=== PATIENT | male | born 1965 | race Two or more races ===

== ENCOUNTER 2019-01-26 22:19 | Inpatient (IN) | payer MEDICAID ==
[~2019-01-26] VITALS: Ht 172.7 cm; Wt 54.5 kg
[~2019-01-26 22:19] MED LIST: DOXY-299 PO; FURO1TAB31 PO; PANT40TA2 PO; POTA-220 PO; SPIR50TA2 PO
[2019-01-26 23:24] LABS: Basophils # (auto) 0 uL; Basophils % (auto) 0.6 % (0.0-2.0); Eosinophils # (auto) 0.1 uL; Eosinophils % (auto) 3.6 % (0.0-7.0); Hematocrit 29.8 % (41.0-53.0); Hemoglobin 10.1 g/dL (13.5-17.5); Lymphocytes # (auto) 0.6 uL; Lymphocytes % (auto) 15.7 % (10.0-50.0); Mean Corpuscular Hemoglobin 32.5 pg (28.0-32.0); Mean Corpuscular Hgb Conc. 33.8 g/dL (32.0-36.0); Mean Corpuscular Volume 96.3 fL (80.0-100.0); Monocytes # (auto) 0.4 uL; Monocytes % (auto) 12.2 % (0.0-12.0); Neutrophils # (auto) 2.4 uL; Neutrophils % (auto) 67.9 % (37.0-80.0); Nucleated Red Blood Cells % 0.2 %; Platelet Count (auto) 82 10^3/uL (140-450); Red Blood Cells 3.09 10^6/uL (4.5-5.90); Red Cell Distribution Width 17.8 % (11.8-14.3); White Blood Cell 3.5 10^3/uL (4.4-10.8)
[2019-01-26 23:38] LABS: INR 1.24 (0.9-1.15)
[2019-01-26 23:46] LABS: Alanine Aminotransferase 20 U/L (16-61); Albumin 1.4 g/dL (3.4-5.0); Anion Gap 12 (5-15); Aspartate Aminotransferase 42 U/L (15-37); BUN/Creatinine Ratio 14.3; Blood Urea Nitrogen 11 mg/dL (7-18); Calcium 7.3 mg/dL (8.5-10.1); Carbon Dioxide 19 mmol/L (21-32); Chloride 113 mmol/L (98-107); GFR African American 136 mL/min; GFR Non-African American 112 mL/min; Glucose 157 mg/dL (74-106); Potassium 3.5 mmol/L (3.5-5.1); Sodium 144 mmol/L (136-145)
[2019-01-26 23:51] LABS: Alkaline Phosphatase 159 U/L (45-117); Bilirubin, Total 1.4 mg/dL (0.2-1.0); Total Protein 7.6 g/dL (6.4-8.2)
[2019-01-26 23:55] LABS: Lactic Acid w/Reflex 2.1 mmol/L (0.4-2.0)
[2019-01-27] MEDS ORDERED: FUROSEMIDE 20 MG/2 ML VIAL IV ONE (03:30)
[2019-01-27] MEDS ORDERED: ONDANSETRON HCL 4 MG/2 ML VIAL IV ONE (04:15)
[2019-01-27] MEDS ORDERED: MORPHINE SULFATE 4 MG/ML SYR/VIAL IV ONE (04:15)
[2019-01-27] MEDS ORDERED: TEMAZEPAM 15 MG CAP PO PRN (07:00)
[2019-01-27] MEDS ORDERED: ACETAMINOPHEN 500 MG TAB PO PRN (07:00)
[2019-01-27 07:18] VITALS: BP 102/63
[2019-01-27] MEDS: ALBUTEROL SULF 2.5 MG/0.5ML(0.5%) NEB SOLN NEB SCH ×4 (09:39→23:02)
[2019-01-27] MEDS: IPRATROPIUM BROM 0.5 MG/2.5ML INH SOL NEB SCH ×4 (09:39→23:02)
[2019-01-27] MEDS ORDERED: POTASSIUM CHL 20 Meq TABLET PO SCH (10:00)
[2019-01-27] MEDS ORDERED: SPIRONOLACTONE 25 MG TAB PO SCH (10:00)
[2019-01-27] MEDS ORDERED: PANTOPRAZOLE 40 MG TAB PO SCH (10:00)
[2019-01-27] MEDS ORDERED: FUROSEMIDE 40 MG TAB PO SCH (10:00)
[2019-01-27] MEDS: MORPHINE SULFATE 4 MG/ML SYR/VIAL IV PRN ×2 (13:03→20:00)
[2019-01-27] MEDS: ONDANSETRON HCL 4 MG/2 ML VIAL IV PRN ×2 (13:04→20:00)
[2019-01-27] MEDS ORDERED: VANCOMYCIN PER PHARMACY 0 MG IV SCH (14:00)
[2019-01-27] MEDS ORDERED: cefTRIAXone 1GM/50ML D5W 50 ML IV ONE (14:00)
[2019-01-27] MEDS: VANCOMYCIN 1GM/250ML 250 ML IV SCH (16:00)
[2019-01-27 17:34] LABS: Urine Bacteria FEW /hpf (None Seen); Urine Blood 2+ /uL (Negative); Urine Mucus FEW (None Seen); Urine Specific Gravity 1.012 (1.001-1.035); Urine WBC 26 /hpf (0 - 3)
[2019-01-27 20:15] VITALS: BP 109/66
--- NOTE | 2019-01-27 20:15 | NUR ---
RECEIVED PATIENT FROM ED VIA STRETCHER, AWAKE, ALERT, ORIENTED X4, SPEAKS CLEARLY. NO S/S OF RESPIRATORY DISTRESS, DENIES SOB AND CHEST PAIN. WITH IV ON THE LEFT FOREARM GAUGE 18. WITH REDNESS AND SWELLING OF THE RIGHT FOOT, NO OPEN WOUND. ORIENTED ON PLAN OF CARE. BED IS LOCKED AND IN LOWEST LEVEL, SIDE RAILS UP X2, BED ALARM ON, CALL LIGHT WITHIN REACH. WILL CONTINUE TO MONITOR Addendum: 01/28/19 at 0709 by MAHNAZ MARIE RN CORRECTION; SWELLING AND REDNESS OF THE RIGHT FOOT
[2019-01-27 21:48] VITALS: BP 109/66
--- NOTE | 2019-01-27 22:50 | NUR ---
PHOTO TAKEN OF THE LEFT FOOT. REDNESS, SWELLING WITH SCABS NOTED FROM PREVIOUS WOUNDS. NO OPEN WOUND Addendum: 01/28/19 at 0710 by MAHNAZ MARIE RN CORRECTION; SWELLING, REDNESS AND SCABS ON THE RIGHT FOOT
--- NOTE | 2019-01-27 23:11 | NUR ---
MRSA NASAL SWAB SAMPLE SENT TO LAB
[2019-01-28] MEDS: MORPHINE SULFATE 4 MG/ML SYR/VIAL IV PRN ×2 (00:01→04:13)
[2019-01-28] MEDS: ONDANSETRON HCL 4 MG/2 ML VIAL IV PRN (00:01)
[2019-01-28] MEDS: IPRATROPIUM BROM 0.5 MG/2.5ML INH SOL NEB SCH ×3 (02:24→10:14)
[2019-01-28] MEDS: ALBUTEROL SULF 2.5 MG/0.5ML(0.5%) NEB SOLN NEB SCH ×3 (02:24→10:14)
[2019-01-28 04:55] VITALS: BP 113/64
[2019-01-28 05:42] LABS: Basophils # (auto) 0 uL; Eosinophils # (auto) 0.2 uL; Hemoglobin 9.9 g/dL (13.5-17.5); Lymphocytes # (auto) 0.5 uL; Monocytes # (auto) 0.4 uL; Neutrophils # (auto) 1.4 uL
[2019-01-28 05:44] LABS: Eosinophils % (auto) 7.7 % (0.0-7.0); Hematocrit 28.8 % (41.0-53.0); Lymphocytes % (auto) 18.8 % (10.0-50.0); Mean Corpuscular Hemoglobin 32.4 pg (28.0-32.0); Mean Corpuscular Hgb Conc. 34.2 g/dL (32.0-36.0); Mean Corpuscular Volume 94.9 fL (80.0-100.0); Monocytes % (auto) 15.6 % (0.0-12.0); Neutrophils % (auto) 56.9 % (37.0-80.0); Nucleated Red Blood Cells % 0.2 %; Platelet Count (auto) 57 10^3/uL (140-450); Red Blood Cells 3.04 10^6/uL (4.5-5.90); Red Cell Distribution Width 17.7 % (11.8-14.3); White Blood Cell 2.4 10^3/uL (4.4-10.8)
[2019-01-28] MEDS: VANCOMYCIN 1GM/250ML 250 ML IV SCH (05:56)
[2019-01-28 06:09] LABS: BUN/Creatinine Ratio 18.3; Calcium 7.5 mg/dL (8.5-10.1); Potassium 4.5 mmol/L (3.5-5.1)
--- NOTE | 2019-01-28 07:20 | NUR ---
Opening Shift Note Assumed care of patient, awake and alert. No S/S of distress/SOB. PT denies any pain at this time. Bed in lowest and locked position with side rails up x2 and call light within reach. Instructed on POC and to call for assist PRN, will continue to monitor for changes Q1hr and PRN.
--- NOTE | 2019-01-28 07:34 | NUR ---
CARE ENDORSED TO AM SHIFT RN
--- NOTE | 2019-01-28 08:50 | NUR ---
IV REMOVED WITH CLEAN TECHNIQUE. IV CATHETER INTACT AND PRESSURE APPLIED. TELEMETRY BOX SENT TO [facility].
--- NOTE | 2019-01-28 08:55 | NUR ---
AMA Note KIM DAVIS states they want to leave the hospital Against Medical Advice (AMA). Patient encouraged to stay for further treatment/stabilization. MD notified of patient's wishes. Patient advised of the risks and benefits of leaving AMA. Patient verbalized understanding. Patient encouraged to return to the ER if symptoms do not improve or worsen.
[2019-01-28] MEDS ORDERED: cefTRIAXone 1GM/50ML D5W 50 ML IV SCH (09:00)
== END 2019-01-28 08:55 | disposition left against medical advice (07) | DRG 720 ==
LOC: EDBD 22:19 → ER 22:25 → TELE 22:26 → TELE-WESTW 01-27 20:10
PROVIDERS: ADMIT Nurse Practitioner Family; ATTEND Internal Medicine
DX: A41.9 Sepsis, unspecified organism (principal); E11.69 Type 2 diabetes mellitus with other specified complication; E44.0 Moderate protein-calorie malnutrition; I50.32 Chronic diastolic (congestive) heart failure; I11.0 Hypertensive heart disease with heart failure; J45.901 Unspecified asthma with (acute) exacerbation; E66.01 Morbid (severe) obesity due to excess calories; R06.03 Acute respiratory distress; K74.60 Unspecified cirrhosis of liver; M86.8X7 Other osteomyelitis, ankle and foot; L03.115 Cellulitis of right lower limb; I25.10 Atherosclerotic heart disease of native coronary artery without angina pectoris; Z53.21 Procedure and treatment not carried out due to patient leaving prior to being seen by health care provider; F17.210 Nicotine dependence, cigarettes, uncomplicated; Z79.899 Other long term (current) drug therapy; Z68.1 Body mass index [BMI] 19.9 or less, adult
CPT/HCPCS: 36415; 71045; 76705; 80048; 80053; 81001; 82140; 83036; 83605; 83880; 84443; 84484; 85025; 85610; 85730; 87040; 87081; 93005; 94640; 94761; 96365; 96367; 96375; G0378; J0696; J2405

== ENCOUNTER 2019-01-30 04:51 | Inpatient (IN) | payer MEDICAID ==
[~2019-01-30] VITALS: Ht 172.7 cm; Wt 120.0 kg
[2019-01-30 05:44] LABS: Basophils # (auto) 0 uL; Eosinophils # (auto) 0.1 uL; Lymphocytes # (auto) 0.5 uL; Mean Corpuscular Hgb Conc. 33.8 g/dL (32.0-36.0); Monocytes # (auto) 0.3 uL; Nucleated Red Blood Cells % 0.1 %; White Blood Cell 2.4 10^3/uL (4.4-10.8)
[2019-01-30 05:47] LABS: Basophils % (auto) 0.9 % (0.0-2.0); Eosinophils % (auto) 4.2 % (0.0-7.0); Hematocrit 28.5 % (41.0-53.0); Hemoglobin 9.6 g/dL (13.5-17.5); Lymphocytes % (auto) 19.3 % (10.0-50.0); Mean Corpuscular Hemoglobin 32.2 pg (28.0-32.0); Mean Corpuscular Volume 95.2 fL (80.0-100.0); Monocytes % (auto) 11.8 % (0.0-12.0); Neutrophils # (auto) 1.5 uL; Neutrophils % (auto) 63.8 % (37.0-80.0); Platelet Count (auto) 53 10^3/uL (140-450); Red Blood Cells 2.99 10^6/uL (4.5-5.90); Red Cell Distribution Width 17.4 % (11.8-14.3)
[2019-01-30 05:58] LABS: INR 1.3 (0.9-1.15); Partial Thromboplastin Time 32.2 sec (23.64-32.05)
[2019-01-30 06:03] LABS: Alanine Aminotransferase 16 U/L (16-61); Albumin 1.3 g/dL (3.4-5.0); Anion Gap 8 (5-15); Aspartate Aminotransferase 36 U/L (15-37); BUN/Creatinine Ratio 18.3; Blood Urea Nitrogen 15 mg/dL (7-18); Calcium 7.2 mg/dL (8.5-10.1); Carbon Dioxide 22 mmol/L (21-32); Chloride 110 mmol/L (98-107); GFR African American 126 mL/min; GFR Non-African American 104 mL/min; Glucose 198 mg/dL (74-106); Sodium 140 mmol/L (136-145)
[2019-01-30 06:08] LABS: Alkaline Phosphatase 145 U/L (45-117); Bilirubin, Total 1.4 mg/dL (0.2-1.0); Total Protein 7.1 g/dL (6.4-8.2)
[2019-01-30] MEDS ORDERED: MIDAZOLAM HCL 1MG/1ML-2 ML VIAL ONE (06:48)
[2019-01-30] MEDS ORDERED: SODIUM CHLORIDE 0.9% 1,000 ML IV ONE (07:36)
[2019-01-30] MEDS ORDERED: ALBUMIN 25% 100 ML IV ONE (07:45)
[2019-01-30] MEDS ORDERED: HYDROmorphone HCL 2 MG/ML VL IV ONE (07:45)
[2019-01-30 08:06] LABS: Urine Bacteria FEW /hpf (None Seen); Urine Blood 2+ /uL (Negative); Urine Budding Yeast OCCASIONAL /hpf (None Seen); Urine Mucus FEW (None Seen); Urine Specific Gravity 1.032 (1.001-1.035); Urine WBC 9 /hpf (0 - 3)
[2019-01-30] MEDS ORDERED: FUROSEMIDE 40 MG/4 ML VIAL IV ONE (11:45)
[2019-01-30] MEDS ORDERED: SPIRONOLACTONE 25 MG TAB PO ONE (11:45)
[2019-01-30] MEDS ORDERED: hydrALAZINE HCL 20 MG/ML VL IV PRN (12:00)
[2019-01-30] MEDS ORDERED: NITROGLYCERIN 0.4 MG SL TAB SL PRN (12:00)
[2019-01-30] MEDS ORDERED: ACETAMINOPHEN 500 MG TAB PO PRN (12:00)
[2019-01-30] MEDS ORDERED: MORPHINE SULF INJ 2 MG/ML SYRINGE 1ML IV PRN (12:00)
[2019-01-30] MEDS ORDERED: DEXTROSE (50%) 50ML SYRG IV PRN (12:15)
[2019-01-30] MEDS: MORPHINE SULF INJ 2 MG/ML SYRINGE 1ML IV PRN ×3 (13:25→23:39)
[2019-01-30] MEDS: PROMETHAZINE HCL 25 MG/ML 1ML IV PRN (13:25)
[2019-01-30 14:16] LABS: Alcohol, Urine < 3.0 mg/dL (0-5); Amphetamine Screen, Urine NEGATIVE (NEGATIVE); Barbiturate Scree,Urine NEGATIVE (NEGATIVE); Benzodiazephine Screen, Urine NEGATIVE (NEGATIVE); Cannabinoid Screen, Urine POSITIVE (NEGATIVE); Cocaine Screen, Urine NEGATIVE (NEGATIVE); Opiate Scree,Urine NEGATIVE (NEGATIVE); Phencyclidine Screen, Urine NEGATIVE (NEGATIVE)
--- NOTE | 2019-01-30 14:55 | NUR ---
REPORT RECEIVED RECIEVED REPORT FROM KRISHNA IN ER, PATIENT IS TO ARRIVE ONCE ECHO IS COMPLETED AND ER HAS TELE BOX
--- NOTE | 2019-01-30 15:52 | NUR ---
pt on unit PATIENT ARRIVED ON UNIT FROM ER, PATIENT IS A&OX4 WITH C/O PAIN, MEDICATED PER MED RECORD. PATIENTS BED IS IN LOW POSITION, BRAKES APPLIED WITH SIDE RAILS UP X2 AND CALL LIGHT WITHIN REACH. PATIENT EDUCATED ON POC AND CALL LIGHT USE PRN, PATIENT VERBALIZED UNDERSTANDING. S/S OF DISTRESS, CONTINUING TO MONITOR PATIENT Q1HR AND PRN
[2019-01-30] MEDS: HYDROcodone-ACET 5/325MG TAB PO PRN ×2 (16:00→22:12)
[2019-01-30 16:06] VITALS: BP 112/60
[2019-01-30] MEDS ORDERED: HYDR-4833 PO (16:43)
[2019-01-30] MEDS: ACCU-CHEK COMFORT CURVE STRIP VI SCH ×2 (17:00→22:07)
[2019-01-30] MEDS: InsuLIN REG 1unit/0.01ml Soln (100units/ml) SC SCH ×2 (17:00→22:00)
--- NOTE | 2019-01-30 19:30 | NUR ---
Opening Shift Note Assumed care of patient, awake and alert. No S/S of distress/SOB. Complained of abdominal pain 12/03. Instructed on POC and to be NPO by 4am. For paracentesis tomorrow, patient verbalized understanding. Instructed to call for assist PRN, call light within reach, will continue to monitor for changes Q1hr and PRN.
[2019-01-30 20:00] VITALS: BP 110/67
[2019-01-30 21:59] VITALS: BP 110/67
[2019-01-30] MEDS: DOCUSATE SOD 100 MG CAP PO SCH (22:00)
[2019-01-30] MEDS: METOPROLOL TARTRATE 25 MG TAB PO SCH (22:07)
[2019-01-30] MEDS: ATORVASTATIN 20 MG TAB PO SCH (22:07)
[2019-01-31] MEDS: MORPHINE SULF INJ 2 MG/ML SYRINGE 1ML IV PRN ×5 (04:34→22:35)
[2019-01-31 05:00] VITALS: BP 97/55
[2019-01-31] MEDS: InsuLIN REG 1unit/0.01ml Soln (100units/ml) SC SCH ×4 (06:06→21:50)
[2019-01-31] MEDS: ACCU-CHEK COMFORT CURVE STRIP VI SCH ×4 (06:06→21:47)
[2019-01-31 06:41] LABS: INR 1.32 (0.9-1.15); Partial Thromboplastin Time 33.2 sec (23.64-32.05)
[2019-01-31 06:48] LABS: Eosinophils # (auto) 0.2 uL; Lymphocytes # (auto) 0.5 uL; Monocytes # (auto) 0.4 uL; Neutrophils # (auto) 1.2 uL
[2019-01-31 06:50] LABS: Basophils # (auto) 0.1 uL; Basophils % (auto) 2.6 % (0.0-2.0); Eosinophils % (auto) 7.7 % (0.0-7.0); Hematocrit 29.2 % (41.0-53.0); Lymphocytes % (auto) 20.2 % (10.0-50.0); Mean Corpuscular Hemoglobin 32.9 pg (28.0-32.0); Mean Corpuscular Hgb Conc. 34.1 g/dL (32.0-36.0); Mean Corpuscular Volume 96.5 fL (80.0-100.0); Monocytes % (auto) 17.4 % (0.0-12.0); Neutrophils % (auto) 52.1 % (37.0-80.0); Platelet Count (auto) 56 10^3/uL (140-450); Red Blood Cells 3.02 10^6/uL (4.5-5.90); Red Cell Distribution Width 17.6 % (11.8-14.3); White Blood Cell 2.2 10^3/uL (4.4-10.8)
[2019-01-31 06:56] LABS: BUN/Creatinine Ratio 19.5; Calcium 7.1 mg/dL (8.5-10.1); Potassium 4.3 mmol/L (3.5-5.1)
--- NOTE | 2019-01-31 07:50 | NUR ---
Opening Shift Note Assumed care of patient, awake but drowsy and alert. No S/S of distress/SOB, however patient complained of pain to lower back and or pain. Instructed on POC and to call for assist PRN, will continue to monitor for changes Q1hr and PRN.
[2019-01-31 09:00] VITALS: BP 105/58
[2019-01-31] MEDS: ASPirin-EC 81 mg tab PO SCH (09:55)
[2019-01-31] MEDS: FAMOTIDINE 20 MG TAB PO SCH (09:55)
[2019-01-31] MEDS: DOCUSATE SOD 100 MG CAP PO SCH ×2 (09:55→21:50)
[2019-01-31] MEDS: METOPROLOL TARTRATE 25 MG TAB PO SCH ×2 (09:57→21:42)
[2019-01-31] MEDS: SPIRONOLACTONE 25 MG TAB PO SCH (10:00)
[2019-01-31] MEDS ORDERED: IOHEXOL 350 MG/ML 100ML IJ ONE (10:36)
[2019-01-31 13:00] VITALS: BP 108/56
[2019-01-31 17:00] VITALS: BP 120/58
--- NOTE | 2019-01-31 19:35 | NUR ---
Opening Shift Note Assumed care of patient, awake and alert. No S/S of distress/SOB. Instructed on POC and to call for assist PRN, patient verbalized understanding, call light within reach, will continue to monitor for changes Q1hr and PRN.
[2019-01-31] MEDS: ATORVASTATIN 20 MG TAB PO SCH (21:42)
[2019-01-31 22:00] VITALS: BP 103/60
[2019-02-01] MEDS: HYDROcodone-ACET 5/325MG TAB PO PRN ×2 (01:00→09:16)
[2019-02-01] MEDS: MORPHINE SULF INJ 2 MG/ML SYRINGE 1ML IV PRN ×6 (02:33→22:42)
[2019-02-01 05:00] VITALS: BP 91/60
[2019-02-01] MEDS: ACCU-CHEK COMFORT CURVE STRIP VI SCH ×4 (05:57→22:44)
[2019-02-01] MEDS: InsuLIN REG 1unit/0.01ml Soln (100units/ml) SC SCH ×4 (05:58→22:55)
--- NOTE | 2019-02-01 07:35 | NUR ---
Opening Shift Note Assumed care of patient, asleep but easily aroused. No S/S of distress/SOB or pain. Will follow up with instructions on POC and to call for assist PRN, will continue to monitor for changes Q1hr and PRN.
--- NOTE | 2019-02-01 07:50 | NUR ---
Pain Medications Patient requested pain injection. He was informed that he received pain medication (morphine) at 0642am.He said no he didn't. It must have been at 5:00 or something and that it was not documented until 0642. Explained that it was not taken from the cassette until 0641, therefore it could not have been documented incorrectly. He stated that the nurse told him she would bring his injection at 0630 and she went away and did not return. He then started to fuss, stating that we don't know what we are doing and he is just tired of this place.
--- NOTE | 2019-02-01 08:45 | NUR ---
Patient requesting a new RN.
[2019-02-01 09:00] VITALS: BP 96/52
--- NOTE | 2019-02-01 09:00 | NUR ---
Care endorsed to Gama HENRY.
[2019-02-01] MEDS: SPIRONOLACTONE 25 MG TAB PO SCH (11:19)
[2019-02-01] MEDS: LACTULOSE 20Gm/30ML SOLN PO SCH ×2 (11:19→22:44)
[2019-02-01] MEDS: ASPirin-EC 81 mg tab PO SCH (11:20)
[2019-02-01] MEDS: DOCUSATE SOD 100 MG CAP PO SCH ×2 (11:20→22:43)
[2019-02-01] MEDS: FUROSEMIDE 40 MG TAB PO SCH (11:20)
[2019-02-01] MEDS: FAMOTIDINE 20 MG TAB PO SCH (11:21)
[2019-02-01] MEDS: METOPROLOL TARTRATE 25 MG TAB PO SCH ×2 (11:21→22:39)
--- NOTE | 2019-02-01 12:30 | NUR ---
Rounds Patient awake and alert. No S/S of distress/SOB or pain. Will continue to monitor changes q1hr and PRN.
[2019-02-01 13:00] VITALS: BP 92/53
[2019-02-01 17:00] VITALS: BP 108/59
--- NOTE | 2019-02-01 19:35 | NUR ---
Opening Shift Note Assumed care of patient, eyes closed, respirations even and unlabored, appears asleep. Patient awakens to name and touch. No S/S of distress/SOB. Patient reporting pain, but aware PRN morphine not due at this time. Patient refusing alternate ordered pain medication at this time. Will medicate for pain as ordered and continue to monitor. Band-aide to left abdomen noted to be clean, dry, and intact. to Instructed on POC and to call for assist PRN, will continue to monitor for changes Q1hr and PRN.
[2019-02-01 22:00] VITALS: BP 103/57
[2019-02-01] MEDS: ATORVASTATIN 20 MG TAB PO SCH (22:43)
[2019-02-02] MEDS: ONDANSETRON HCL 4 MG/2 ML VIAL IV PRN (00:28)
[2019-02-02] MEDS: MORPHINE SULF INJ 2 MG/ML SYRINGE 1ML IV PRN ×5 (03:03→20:14)
[2019-02-02 05:00] VITALS: BP 103/60
[2019-02-02] MEDS: ACCU-CHEK COMFORT CURVE STRIP VI SCH ×4 (07:04→21:36)
[2019-02-02] MEDS: InsuLIN REG 1unit/0.01ml Soln (100units/ml) SC SCH ×4 (07:04→22:00)
--- NOTE | 2019-02-02 07:04 | NUR ---
Closing Note Patient lying in bed, awake and alert. No s/s of distress. Medicated for pain as ordered, see emar. Care endorsed to dayshift RN.
--- NOTE | 2019-02-02 07:22 | NUR ---
Opening Shift Note Assumed care of patient, awake and alert. No S/S of distress/SOB. Pt denies any pain at this time. Bed in lowest and locked position with side rails up x2 and call light in reach. Instructed on POC and to call for assist PRN, will continue to monitor for changes Q1hr and PRN.
[2019-02-02 08:00] VITALS: BP 102/57
[2019-02-02 09:29] LABS: Anion Gap 7 (5-15); Carbon Dioxide 22 mmol/L (21-32); Chloride 110 mmol/L (98-107); Glucose 157 mg/dL (74-106); Potassium 3.9 mmol/L (3.5-5.1); Sodium 139 mmol/L (136-145)
[2019-02-02 09:30] LABS: Blood Urea Nitrogen 18 mg/dL (7-18); GFR African American 126 mL/min; GFR Non-African American 104 mL/min
[2019-02-02] MEDS: METOPROLOL TARTRATE 25 MG TAB PO SCH ×2 (10:00→21:35)
[2019-02-02] MEDS: LACTULOSE 20Gm/30ML SOLN PO SCH ×2 (11:12→21:35)
[2019-02-02] MEDS: ASPirin-EC 81 mg tab PO SCH (11:13)
[2019-02-02] MEDS: SPIRONOLACTONE 25 MG TAB PO SCH (11:13)
[2019-02-02] MEDS: DOCUSATE SOD 100 MG CAP PO SCH ×2 (11:13→21:36)
[2019-02-02] MEDS: FAMOTIDINE 20 MG TAB PO SCH (11:13)
[2019-02-02] MEDS: FUROSEMIDE 40 MG TAB PO SCH (11:14)
[2019-02-02 13:00] VITALS: BP 102/55
[2019-02-02] MEDS: HYDROcodone-ACET 5/325MG TAB PO PRN (14:04)
--- NOTE | 2019-02-02 15:25 | NUR ---
DR. ABAD AT BEDSIDE DISCUSSING POC WITH PT.
[2019-02-02 16:41] VITALS: BP 112/53
--- NOTE | 2019-02-02 19:20 | NUR ---
Opening Shift Note Assumed care of patient, awake and alert. No S/S of distress/SOB. Patient reporting pain, but aware PRN morphine not due at this time. Patient again refusing alternate ordered pain medications. Will medicate for pain as ordered and continue to monitor. Bed in lowest locked position, side rails up x2, call light within reach. Instructed on POC and to call for assist PRN, will continue to monitor for changes Q1hr and PRN.
--- NOTE | 2019-02-02 19:25 | NUR ---
Opening Shift Note Assumed care of patient, eyes closed, respirations even and unlabored, appears asleep. No S/S of distress/SOB. Patient reporting pain, but aware PRN morphine not due at this time. Will medicate for pain as ordered and continue to monitor. Bed in lowest locked position, side rails up x2, call light within reach. Instructed on POC and to call for assist PRN, will continue to monitor for changes Q1hr and PRN. Addendum: 02/03/19 at 2318 by YOLANDA BOWLING RN RN CORRECTION: Date of note 02/03/19.
--- NOTE | 2019-02-02 20:15 | NUR ---
MRSA Swab Nasal MRSA swab collected and sent. Patient tolerated well. Will continue to monitor.
[2019-02-02] MEDS: ATORVASTATIN 20 MG TAB PO SCH (21:35)
[2019-02-02 22:00] VITALS: BP 104/57
[2019-02-03] MEDS: MORPHINE SULF INJ 2 MG/ML SYRINGE 1ML IV PRN ×4 (00:30→20:53)
[2019-02-03 05:00] VITALS: BP 91/46
[2019-02-03] MEDS: ACCU-CHEK COMFORT CURVE STRIP VI SCH ×4 (06:39→20:54)
[2019-02-03] MEDS: InsuLIN REG 1unit/0.01ml Soln (100units/ml) SC SCH ×4 (06:39→21:07)
--- NOTE | 2019-02-03 07:40 | NUR ---
Closing Note Patient lying in bed, awake and alert. No s/s of distress. Care endorsed to dayshift RN.
[2019-02-03 08:28] VITALS: BP 92/45
[2019-02-03] MEDS: FAMOTIDINE 20 MG TAB PO SCH (09:59)
[2019-02-03] MEDS: LACTULOSE 20Gm/30ML SOLN PO SCH ×2 (09:59→20:53)
[2019-02-03] MEDS: ASPirin-EC 81 mg tab PO SCH (09:59)
[2019-02-03] MEDS: HYDROcodone-ACET 5/325MG TAB PO PRN (09:59)
[2019-02-03] MEDS: DOCUSATE SOD 100 MG CAP PO SCH ×2 (09:59→20:53)
[2019-02-03] MEDS: METOPROLOL TARTRATE 25 MG TAB PO SCH ×2 (10:00→20:54)
[2019-02-03] MEDS: SPIRONOLACTONE 25 MG TAB PO SCH (10:00)
[2019-02-03] MEDS: FUROSEMIDE 40 MG TAB PO SCH (10:00)
[2019-02-03 13:00] VITALS: BP 90/52
[2019-02-03 13:37] LABS: Basophils # (auto) 0 uL; Eosinophils # (auto) 0.1 uL; Monocytes # (auto) 0.4 uL; Neutrophils # (auto) 1.3 uL; Nucleated Red Blood Cells % 0.2 %; Platelet Count (auto) 61 10^3/uL (140-450); Red Blood Cells 3.38 10^6/uL (4.5-5.90); White Blood Cell 2.3 10^3/uL (4.4-10.8)
[2019-02-03 14:02] LABS: Albumin 1.4 g/dL (3.4-5.0); Basophils % (auto) 0.8 % (0.0-2.0); Calcium 7.2 mg/dL (8.5-10.1); Eosinophils % (auto) 4.8 % (0.0-7.0); Hemoglobin 10.7 g/dL (13.5-17.5); Lymphocytes # (auto) 0.5 uL; Mean Corpuscular Hemoglobin 31.8 pg (28.0-32.0); Mean Corpuscular Hgb Conc. 33.5 g/dL (32.0-36.0); Mean Corpuscular Volume 94.9 fL (80.0-100.0); Monocytes % (auto) 17.2 % (0.0-12.0); Neutrophils % (auto) 57.2 % (37.0-80.0); Red Cell Distribution Width 17.8 % (11.8-14.3)
[2019-02-03 14:07] LABS: BUN/Creatinine Ratio 21.5; Bilirubin, Total 1.4 mg/dL (0.2-1.0); Total Protein 6.9 g/dL (6.4-8.2)
[2019-02-03] MEDS ORDERED: VANCOMYCIN PER PHARMACY 0 MG IV SCH (14:15)
[2019-02-03] MEDS: VANCOMYCIN 1,250 MG in D5W 5% 250 ML IV SCH ×2 (15:45→22:30)
[2019-02-03 17:25] VITALS: BP 96/46
[2019-02-03] MEDS: ATORVASTATIN 20 MG TAB PO SCH (20:54)
[2019-02-03 22:00] VITALS: BP 118/61
[2019-02-03] MEDS: ONDANSETRON HCL 4 MG/2 ML VIAL IV PRN (22:39)
[2019-02-04] MEDS: PROMETHAZINE HCL 25 MG/ML 1ML IV PRN (01:03)
[2019-02-04] MEDS: MORPHINE SULF INJ 2 MG/ML SYRINGE 1ML IV PRN ×3 (01:03→20:47)
[2019-02-04 05:00] VITALS: BP 99/57
[2019-02-04 06:05] LABS: Red Cell Distribution Width 17.3 % (11.8-14.3); White Blood Cell 2.1 10^3/uL (4.4-10.8)
[2019-02-04 06:08] LABS: Hematocrit 29.1 % (41.0-53.0); Mean Corpuscular Hemoglobin 32.3 pg (28.0-32.0); Mean Corpuscular Hgb Conc. 34.5 g/dL (32.0-36.0); Mean Corpuscular Volume 93.8 fL (80.0-100.0); Red Blood Cells 3.11 10^6/uL (4.5-5.90)
[2019-02-04 06:15] LABS: Basophils % (manual) 0 (0.0-2.0); Blast Cells 0; Metamyelocytes % 0; Myelocytes % 0; Promyelocytes % 0; Reactive Lymphocytes 0
[2019-02-04] MEDS: ACCU-CHEK COMFORT CURVE STRIP VI SCH ×4 (06:41→22:04)
[2019-02-04] MEDS: VANCOMYCIN 1,250 MG in D5W 5% 250 ML IV SCH ×3 (06:41→22:29)
[2019-02-04] MEDS: InsuLIN REG 1unit/0.01ml Soln (100units/ml) SC SCH ×4 (06:55→22:13)
--- NOTE | 2019-02-04 07:07 | NUR ---
Closing Note Patient lying in bed, eyes closed, respirations even and unlabored, appears asleep. Patient awakens to name and touch. Asked if he is in pain, states he is "ok right now". No s/s of distress. Care endorsed to dayshift RN.
--- NOTE | 2019-02-04 07:20 | NUR ---
Opening Shift Note Assumed care of patient, awake and alert. No S/S of distress/SOB or pain. Instructed on POC and to call For assist PRN, will continue to monitor for changes Q1hr and PRN. Bed locked in lowest position with two side rails up and call light in reach.
[2019-02-04 08:00] VITALS: BP 92/52
[2019-02-04 08:41] LABS: Platelet Count (auto) 52 10^3/uL (140-450)
[2019-02-04 09:00] VITALS: BP 92/55
--- NOTE | 2019-02-04 09:00 | NUR ---
RECEIVED A CALL FROM [facility] ERICKA WANTS TO LET KNOW THAT PLATELETS ARE LOW AT 52 AND IF HE WOULD LIKE TO CONTINUE ASA [address] BARTH WHO I NOTIFIED, UNLESS PATIENT IS SHOWING SIGNS OF BLEEDING SUCH BLOODY NOSE ETC. CONTINUE, IF BLEEDING IS PRESENT STOP ASA.
[2019-02-04 09:21] LABS: Band Neutrophils % (manual) 1; Lymphocytes % (manual) 21 (10.0-50.0)
[2019-02-04 09:22] LABS: Monocytes % (manual) 18 (0-12)
[2019-02-04 09:23] LABS: Eosinophils % (manual) 4 (0-7)
[2019-02-04] MEDS: DOCUSATE SOD 100 MG CAP PO SCH ×2 (09:33→22:00)
[2019-02-04] MEDS: FAMOTIDINE 20 MG TAB PO SCH (09:33)
[2019-02-04] MEDS: LACTULOSE 20Gm/30ML SOLN PO SCH ×2 (09:33→10:00)
[2019-02-04] MEDS: SPIRONOLACTONE 25 MG TAB PO SCH (09:33)
[2019-02-04] MEDS: ASPirin-EC 81 mg tab PO SCH (09:34)
[2019-02-04] MEDS: METOPROLOL TARTRATE 25 MG TAB PO SCH ×2 (09:34→22:00)
[2019-02-04] MEDS: FUROSEMIDE 40 MG TAB PO SCH (09:34)
[2019-02-04 10:45] LABS: Hepatitis B Surface Antibody Negative
[2019-02-04 11:18] LABS: Hepatitis A Total Antibody Positive
--- NOTE | 2019-02-04 11:46 | NUR ---
assessment Patient is a 53 year old male who is alert and oriented. Prior to admission patient lived home with his son Eddi and functioned with assistance. when he is not feeling well. Patient informed me he has a wheelchair for home use, but it is old and broke. Patient informed me he still has not seen a PCP. Patient informed me he will return home with his son on discharge. Patient will need a new wheelchair on discharge. Patient verbalized understanding and agreed to discharge plan home with his son. Addendum: 02/06/19 at 1848 by Estrella GARCIA Amended: Links added.
[2019-02-04] MEDS: Glucerna Carbsteady SHAKE Vanilla 8oz PO SCH ×2 (12:02→18:00)
--- NOTE | 2019-02-04 12:08 | NUR ---
Nutrition Assessment Notes please see attached link for complete assessment Est. Needs ABW (96 kg): [id number] kcal (17-20 kcal/kgBW), 57-76 gms pro (0.6-0.8 gms/kgBW r/t elev ammonia, wounds severe hypoalb). Will continue to monitor pertinent labs and reassess nutrient need prn Addendum: 02/04/19 at [address] Amended: Links added.
[2019-02-04 13:00] VITALS: BP 112/58
[2019-02-04 13:59] LABS: Hepatitis B Core Total AB Negative
[2019-02-04 14:00] LABS: Hepatitis B Surface Antigen Negative (Negative)
[2019-02-04 14:03] LABS: Hepatitis C Antibody Positive (Negative)
--- NOTE | 2019-02-04 14:16 | NUR ---
DR COURTNEY MO RECOMMENDED FOR PATIENT TO STAY OFF LEFT FOOT AND WHEEL CHAIR ALONG WITH CAM BOOT.
--- NOTE | 2019-02-04 14:17 | NUR ---
RECEIVED CALL FROM LAB PER YARELI PATIENT IS POSITIVE FOR HEPATITIS C. REPORTED TP DR BARTH AND CHARGE NURSE NOTIFIED.
[2019-02-04 17:00] VITALS: BP 103/54
--- NOTE | 2019-02-04 17:00 | NUR ---
Received report from heathwachaitanya RN. Patient resting in bed and in no distress. Will continue care.
--- NOTE | 2019-02-04 19:00 | NUR ---
Opening Shift Note Assumed care of patient, patient asleep. No S/S of distress/SOB or pain. Will continue to monitor for changes Q1hr and PRN.
[2019-02-04 22:00] VITALS: BP 114/54
[2019-02-04] MEDS: ATORVASTATIN 20 MG TAB PO SCH (22:12)
[2019-02-05] MEDS: MORPHINE SULF INJ 2 MG/ML SYRINGE 1ML IV PRN ×4 (01:11→22:25)
[2019-02-05 04:25] LABS: Hemoglobin 10.3 g/dL (13.5-17.5); White Blood Cell 2.2 10^3/uL (4.4-10.8)
[2019-02-05 04:27] LABS: Mean Corpuscular Hemoglobin 32.2 pg (28.0-32.0); Mean Corpuscular Hgb Conc. 34.4 g/dL (32.0-36.0); Mean Corpuscular Volume 93.6 fL (80.0-100.0); Platelet Count (auto) 56 10^3/uL (140-450); Red Cell Distribution Width 17.5 % (11.8-14.3)
[2019-02-05 04:36] LABS: Basophils % (manual) 0 (0.0-2.0); Blast Cells 0; Metamyelocytes % 0; Myelocytes % 0; Promyelocytes % 0; Reactive Lymphocytes 0
[2019-02-05 05:04] LABS: BUN/Creatinine Ratio 23.9; Calcium 7.1 mg/dL (8.5-10.1); Potassium 3.8 mmol/L (3.5-5.1)
--- NOTE | 2019-02-05 05:40 | NUR ---
BP IN THE AM WAS AT 94/49. PATIENT IS ASYMPTOMATIC. RESUMED LR AT 150.
[2019-02-05 05:41] VITALS: BP 113/60
--- NOTE | 2019-02-05 06:00 | NUR ---
PATIENT REPORTS NO FURTHER VAGINAL BLEEDING AND NO C/O PAIN.
[2019-02-05 06:15] LABS: Band Neutrophils % (manual) 4; Eosinophils % (manual) 3 (0-7); Lymphocytes % (manual) 17 (10.0-50.0); Monocytes % (manual) 12 (0-12)
[2019-02-05] MEDS: ACCU-CHEK COMFORT CURVE STRIP VI SCH ×4 (06:22→22:24)
[2019-02-05] MEDS: InsuLIN REG 1unit/0.01ml Soln (100units/ml) SC SCH ×4 (06:23→22:25)
[2019-02-05] MEDS: VANCOMYCIN 1,250 MG in D5W 5% 250 ML IV SCH ×3 (06:42→23:00)
--- NOTE | 2019-02-05 06:53 | NUR ---
BP RECHECK WAS 95/55.
[2019-02-05 08:00] VITALS: BP 103/59
[2019-02-05 10:00] VITALS: BP 103/59
--- NOTE | 2019-02-05 10:05 | NUR ---
DR. PATEL AT BEDSIDE. POC DISCUSSED WITH PT. PT VERBALIZED AGREEING WITH POC.
[2019-02-05] MEDS: FAMOTIDINE 20 MG TAB PO SCH (10:11)
[2019-02-05] MEDS: ASPirin-EC 81 mg tab PO SCH (10:11)
[2019-02-05] MEDS: FUROSEMIDE 40 MG TAB PO SCH (10:11)
[2019-02-05] MEDS: DOCUSATE SOD 100 MG CAP PO SCH ×2 (10:11→22:24)
[2019-02-05] MEDS: METOPROLOL TARTRATE 25 MG TAB PO SCH ×2 (10:12→22:24)
[2019-02-05] MEDS: SPIRONOLACTONE 25 MG TAB PO SCH (10:12)
[2019-02-05] MEDS: LACTULOSE 20Gm/30ML SOLN PO SCH ×4 (10:12→23:39)
[2019-02-05] MEDS: Glucerna Carbsteady SHAKE Vanilla 8oz PO SCH ×3 (10:13→17:58)
[2019-02-05 13:17] VITALS: BP 110/46
[2019-02-05 16:39] VITALS: BP 117/77
--- NOTE | 2019-02-05 17:01 | NUR ---
Per consult for wheel chair and cam boot. Contacted and faxed medical records to [facility], [facility] and [facility]. [facility] and [facility] are not contract with medical. Contacted [facility] Ph: ) Fax: ). Per Sherly from [facility] referral was received and they will review it. I will followed up tomorrow morning. Addendum: 02/06/19 at 1814 by DANE HERNANDEZ Followed up with Sherly from [facility] and faxed prescription to Sherly. Per Sherly faxed was recieved and she will give it to Chandan from [facility] and will follow up tomorrow for approval.
--- NOTE | 2019-02-05 19:30 | NUR ---
Opening Shift Note Assumed care of patient, awake and alert. No S/S of distress/SOB or pain. Instructed on POC and to call for assist PRN. Bed in lowest locked position, call light within reach, side rails up x2, fall precautions in place. Will continue to monitor for changes Q1hr and PRN.
--- NOTE | 2019-02-05 19:48 | NUR ---
CARE ENDORSED TO NOC SHIFT RN.
[2019-02-05 22:00] VITALS: BP 115/68
[2019-02-05] MEDS: ATORVASTATIN 20 MG TAB PO SCH (22:24)
--- NOTE | 2019-02-05 23:00 | NUR ---
Bonifacio Valdovinos held at this time due to vanco trough elevated at 25.1. Will continue care
[2019-02-06] MEDS: MORPHINE SULF INJ 2 MG/ML SYRINGE 1ML IV PRN ×5 (02:15→20:15)
[2019-02-06 05:00] VITALS: BP 101/58
[2019-02-06] MEDS: ACCU-CHEK COMFORT CURVE STRIP VI SCH ×4 (06:28→21:46)
[2019-02-06] MEDS: VANCOMYCIN 1,250 MG in D5W 5% 250 ML IV SCH (06:28)
[2019-02-06] MEDS: LACTULOSE 20Gm/30ML SOLN PO SCH ×4 (06:28→23:36)
[2019-02-06] MEDS: InsuLIN REG 1unit/0.01ml Soln (100units/ml) SC SCH ×4 (06:29→21:46)
[2019-02-06 07:36] LABS: Mean Corpuscular Hemoglobin 31.8 pg (28.0-32.0); Red Cell Distribution Width 17.7 % (11.8-14.3)
[2019-02-06 07:37] LABS: Hematocrit 33.6 % (41.0-53.0); Hemoglobin 11.3 g/dL (13.5-17.5); Mean Corpuscular Hgb Conc. 33.5 g/dL (32.0-36.0); Platelet Count (auto) 62 10^3/uL (140-450); Red Blood Cells 3.54 10^6/uL (4.5-5.90)
--- NOTE | 2019-02-06 07:40 | NUR ---
OPENING NOTE Assumed care of patient from NOC RN, Alejandra. Patient awake and alert with no S/S of distress/SOB. C/O of generalized back pain 7/10 on adult pain scale, will administer prn pain medication as ordered. Instructed on POC and to call for assist PRN, verbalized understanding. Bed in lowest, locked position with side rails up x2. Fall precautions in place and call light within reach. Will continue to monitor for changes Q1hr and PRN.
[2019-02-06 07:45] LABS: Band Neutrophils % (manual) 0; Basophils % (manual) 0 (0.0-2.0); Blast Cells 0; Metamyelocytes % 0; Myelocytes % 0; Promyelocytes % 0; Reactive Lymphocytes 0
[2019-02-06 07:48] LABS: BUN/Creatinine Ratio 22.1; Calcium 7.5 mg/dL (8.5-10.1); Potassium 3.6 mmol/L (3.5-5.1)
[2019-02-06] MEDS: Glucerna Carbsteady SHAKE Vanilla 8oz PO SCH ×3 (08:00→17:40)
[2019-02-06 08:30] LABS: Eosinophils % (manual) 2 (0-7); Lymphocytes % (manual) 17 (10.0-50.0); Monocytes % (manual) 10 (0-12)
[2019-02-06 09:00] VITALS: BP 106/55
[2019-02-06] MEDS: ASPirin-EC 81 mg tab PO SCH (09:35)
[2019-02-06] MEDS: SPIRONOLACTONE 25 MG TAB PO SCH (09:35)
[2019-02-06] MEDS: DOCUSATE SOD 100 MG CAP PO SCH ×2 (09:35→21:46)
[2019-02-06] MEDS: FAMOTIDINE 20 MG TAB PO SCH (09:35)
[2019-02-06] MEDS: METOPROLOL TARTRATE 25 MG TAB PO SCH ×2 (09:36→21:47)
[2019-02-06] MEDS: FUROSEMIDE 40 MG TAB PO SCH (09:36)
[2019-02-06 13:00] VITALS: BP 109/60
[2019-02-06] MEDS: VANCOMYCIN 1GM/250ML 250 ML IV SCH ×2 (15:51→23:36)
[2019-02-06 17:00] VITALS: BP 115/53
[2019-02-06] MEDS: NutriHep RTU 240 mL Unflavored PO SCH (17:40)
--- NOTE | 2019-02-06 19:09 | NUR ---
CLOSING NOTE Endorsed care of patient to NOC Alejandra HENRY.
[2019-02-06] MEDS: ATORVASTATIN 20 MG TAB PO SCH (21:46)
--- NOTE | 2019-02-06 21:50 | NUR ---
Med held Lopressor held due to low diastolic BP 117/57. Will continue to monitor.
[2019-02-06 22:00] VITALS: BP 117/57
--- NOTE | 2019-02-07 01:35 | NUR ---
IV insertion IV access obtained, via clean sterile technique by inserting 22 gauge catheter at left forearm after 6 attempt(s). IV secured properly. No trauma to site. Patient tolerated well. NOTE: Previous IV dc'd.
[2019-02-07] MEDS: MORPHINE SULF INJ 2 MG/ML SYRINGE 1ML IV PRN ×3 (01:38→15:12)
[2019-02-07 04:31] LABS: Basophils # (auto) 0 uL; Basophils % (auto) 0.4 % (0.0-2.0); Eosinophils # (auto) 0.1 uL; Eosinophils % (auto) 3.9 % (0.0-7.0); Hematocrit 31.7 % (41.0-53.0); Hemoglobin 10.9 g/dL (13.5-17.5); Lymphocytes # (auto) 0.6 uL; Lymphocytes % (auto) 17.3 % (10.0-50.0); Mean Corpuscular Hemoglobin 32.1 pg (28.0-32.0); Mean Corpuscular Hgb Conc. 34.5 g/dL (32.0-36.0); Monocytes # (auto) 0.6 uL; Monocytes % (auto) 17.8 % (0.0-12.0); Neutrophils # (auto) 1.9 uL; Neutrophils % (auto) 60.6 % (37.0-80.0); Platelet Count (auto) 56 10^3/uL (140-450); Red Blood Cells 3.41 10^6/uL (4.5-5.90); Red Cell Distribution Width 17.5 % (11.8-14.3); White Blood Cell 3.2 10^3/uL (4.4-10.8)
--- NOTE | 2019-02-07 04:59 | NUR ---
PATIENT REFUSED 4AM VITALS WAS VERY RUDE AND DISRESPECTFUL CURSING AT ME
--- NOTE | 2019-02-07 05:00 | NUR ---
Vital signs Patient refusing AM vital signs and cursing at FORCE DISPATCHER.
[2019-02-07 05:08] LABS: Potassium 3.8 mmol/L (3.5-5.1)
[2019-02-07 05:13] LABS: BUN/Creatinine Ratio 21.7
[2019-02-07] MEDS: LACTULOSE 20Gm/30ML SOLN PO SCH ×3 (06:00→18:00)
[2019-02-07] MEDS: ACCU-CHEK COMFORT CURVE STRIP VI SCH ×4 (06:29→21:27)
[2019-02-07] MEDS: VANCOMYCIN 1GM/250ML 250 ML IV SCH ×2 (06:29→15:00)
[2019-02-07] MEDS: InsuLIN REG 1unit/0.01ml Soln (100units/ml) SC SCH ×4 (06:29→21:27)
[2019-02-07] MEDS: NutriHep RTU 240 mL Unflavored PO SCH ×2 (08:00→18:00)
[2019-02-07] MEDS: Glucerna Carbsteady SHAKE Vanilla 8oz PO SCH ×3 (08:00→19:09)
[2019-02-07 09:00] VITALS: BP 102/56
[2019-02-07] MEDS: DOCUSATE SOD 100 MG CAP PO SCH ×2 (10:00→21:26)
[2019-02-07] MEDS: SPIRONOLACTONE 25 MG TAB PO SCH (10:33)
[2019-02-07] MEDS: ASPirin-EC 81 mg tab PO SCH (10:33)
[2019-02-07] MEDS: FAMOTIDINE 20 MG TAB PO SCH (10:34)
[2019-02-07] MEDS: FUROSEMIDE 40 MG TAB PO SCH (10:35)
[2019-02-07] MEDS: METOPROLOL TARTRATE 25 MG TAB PO SCH ×2 (10:36→22:00)
--- NOTE | 2019-02-07 12:37 | NUR ---
Nutrition consult/Follow-up Notes Pt. endorses excellent appetite with good tolerance to diet. No reports of GI distress at time of visit. Pt. declined diet education and handouts for therapeutic diet. Est. Needs (based on previous assessment) Calories/Kcals/Kg 17-20/kg ABW 96kg Kcals Calculated 1920 Proteing/K.6-0.8 (elev ammonia) Protein Calculated 76 Labs: Ammonia 44H, WBC 3.3L, H/H 10.9L/31.2L, Na 140, K 3.8L Skin: Aqu[place] 19, low risk GI: BM x 1 per pt. report PES: Altered nutrition related lab values r.t current chronic medical conidtion aeb elev ammomia, hyperglcyemia, severe hypoalb hypocalcemia Decreased nutrient needs r/t adiposity AEB pt.s high BMI 40.9. Plan of care: Continue hepatic, CCHO diet as ordered and as tolerated. Monitor labs, weight trends, labs, PO intake/tolerance to diet. Will F/U in 3-5 days. Recommendations: Continue CCHO, Hepatic diet as ordered.
--- NOTE | 2019-02-07 12:40 | NUR ---
Opening Shift Note Assuming care of patient. Patient is resting with his eyes closed. Patient shows no signs or symptoms of distress or pain. Bed is locked and lowered with side rails up x2. Will instruct patient on the plan of care once patient is awake and alert. Call light within reach. Will continue to round hourly and as needed. Addendum: 02/07/19 at 1242 by CATERINA HERRING RN RN This note was intended for [id number].
--- NOTE | 2019-02-07 12:48 | NUR ---
Call to Dietary Dietary called at this time regarding patient's NutriHep RTU not being delivered on tray. This is no longer available at this facility. We haven't carried this is a while per dietitian. Will notify
[2019-02-07 13:00] VITALS: BP 108/55
--- NOTE | 2019-02-07 13:45 | NUR ---
Call from PT The orthotist prosthetist is off today, therefore, patient is unable to receive CAM boot today. Plan for CAM boot tomorrow.
--- NOTE | 2019-02-07 16:17 | NUR ---
Sole Dyer Spoke with social and political studies professor, Argelia, about wheelchair. Argelia will follow-up with company to see if wheelchair has been delivered.
--- NOTE | 2019-02-07 16:25 | NUR ---
D/C planning Followed up with [employer] was unable to get a hold of Sherly left her a message for an update on Wheel Chair. Will follow up in the morning
--- NOTE | 2019-02-07 17:25 | NUR ---
Vanco Trough Call from pharmacy at this time. Per pharmacist, even though vanco trough is high the next dose should be given at 2100. Per pharmacist, vanco trough normally will drop down in half in about 6 hours. Therefore, he scheduled the next dose 6 hours from now so that the trough will be equivalent to about 12.5. Will notify support service tech RN so that they can give next scheduled dose despite high vanco trough at earlier time.
--- NOTE | 2019-02-07 19:30 | NUR ---
Opening Shift Note Pt is resting in bed with eyes open and resp rate is even and unlabored. Pt denies any CP or SOB at this time. No s/s of any distress noted. Pt's right LE is still with edema 2+ non pitting. Still awaiting cam boot. POC discussed with pt and pt verbalizes understanding. Bed is low , wheels are locked, and call light is with in reach. Will continue to monitor pt q 1 hr and prn.
--- NOTE | 2019-02-07 19:33 | NUR ---
Closing Shift Note Patient is resting in bed. Patient shows no signs or symptoms of distress. Report given. Will endorse care to the accounting machine servicer RN.
[2019-02-07] MEDS: ATORVASTATIN 20 MG TAB PO SCH (21:26)
[2019-02-07] MEDS: VANCOMYCIN 1,500 MG in D5W 5% 250 ML IV SCH (21:29)
[2019-02-07 22:00] VITALS: BP 115/58
[2019-02-08] MEDS: LACTULOSE 20Gm/30ML SOLN PO SCH ×4 (00:49→18:00)
--- NOTE | 2019-02-08 01:33 | NUR ---
Pt c/o pain and asked for pain medication . When arrived at pt bedside with Hydrocodone pt refused Hydrocodone and demanded Morphine stating, " You are not my fucking doctor you are the nurse!" "My doctor did not order that [place], he ordered Morphine now I suggest you go get my fucking Morphine NOW!" Tried to explain to pt that the doctor ordered both medications and that previously this evening he took Hydrocodone with good results and pt yelled louder and cursed more. Left the bedside to get the pt Morphine this time.
[2019-02-08] MEDS: MORPHINE SULF INJ 2 MG/ML SYRINGE 1ML IV PRN ×3 (01:56→19:46)
--- NOTE | 2019-02-08 01:59 | NUR ---
Due to pt behavior being so aggressive, entered pt's room with another nurse for support. Breann behavior support specialist entered room with this RN to give pain meds. Pt medicated with Morphine 2mg IVP at this time. Will continue to monitor and reassess pt per policy and prn.
[2019-02-08 05:00] VITALS: BP 100/55
[2019-02-08] MEDS: ACCU-CHEK COMFORT CURVE STRIP VI SCH ×4 (06:33→21:40)
[2019-02-08] MEDS: InsuLIN REG 1unit/0.01ml Soln (100units/ml) SC SCH ×4 (06:34→21:41)
[2019-02-08 07:26] LABS: Basophils # (auto) 0 uL; Basophils % (auto) 0.6 % (0.0-2.0); Eosinophils # (auto) 0.2 uL; Eosinophils % (auto) 5.8 % (0.0-7.0); Hematocrit 30.4 % (41.0-53.0); Hemoglobin 10.4 g/dL (13.5-17.5); Lymphocytes # (auto) 0.6 uL; Lymphocytes % (auto) 18.7 % (10.0-50.0); Mean Corpuscular Hemoglobin 31.8 pg (28.0-32.0); Mean Corpuscular Hgb Conc. 34.2 g/dL (32.0-36.0); Monocytes # (auto) 0.5 uL; Monocytes % (auto) 15.4 % (0.0-12.0); Neutrophils # (auto) 1.8 uL; Neutrophils % (auto) 59.5 % (37.0-80.0); Nucleated Red Blood Cells % 0.3 %; Red Blood Cells 3.27 10^6/uL (4.5-5.90); Red Cell Distribution Width 17.7 % (11.8-14.3); White Blood Cell 3.1 10^3/uL (4.4-10.8)
[2019-02-08 07:28] LABS: Platelet Count (auto) 54 10^3/uL (140-450)
--- NOTE | 2019-02-08 07:30 | NUR ---
Opening Shift Note Assuming care of patient. Patient is resting with his eyes closed. Patient shows no signs or symptoms of distress or pain. Bed is locked and lowered with side rails up x2. Will instruct patient on the plan of care once patient is awake and alert. Call light within reach. Will continue to round hourly and as needed.
[2019-02-08 07:42] LABS: Calcium 7.1 mg/dL (8.5-10.1); Potassium 3.9 mmol/L (3.5-5.1)
[2019-02-08 07:45] LABS: BUN/Creatinine Ratio 18.5
[2019-02-08 08:00] VITALS: BP 100/55
[2019-02-08] MEDS: NutriHep RTU 240 mL Unflavored PO SCH ×2 (08:00→18:00)
--- NOTE | 2019-02-08 08:20 | NUR ---
Call from PT [facility] from [facility]. Cam boot might need to be ordered. Mic photo tech, will make contact with this RN later regarding the status.
[2019-02-08] MEDS: Glucerna Carbsteady SHAKE Vanilla 8oz PO SCH ×3 (09:33→18:45)
[2019-02-08] MEDS: VANCOMYCIN 1,500 MG in D5W 5% 250 ML IV SCH ×2 (09:40→21:12)
[2019-02-08] MEDS: FAMOTIDINE 20 MG TAB PO SCH (09:42)
[2019-02-08] MEDS: METOPROLOL TARTRATE 25 MG TAB PO SCH ×2 (09:43→21:40)
[2019-02-08] MEDS: ASPirin-EC 81 mg tab PO SCH (09:43)
[2019-02-08] MEDS: FUROSEMIDE 40 MG TAB PO SCH (09:43)
[2019-02-08] MEDS: SPIRONOLACTONE 25 MG TAB PO SCH (09:44)
[2019-02-08] MEDS: DOCUSATE SOD 100 MG CAP PO SCH ×2 (09:45→21:41)
--- NOTE | 2019-02-08 09:51 | NUR ---
D/C planning Received a phone called this morning at 9:00 am from Sherly from [facility]. Per Sherly from [facility] it has been faxed medical records to Medicare. She stated Medicare takes up to 14 days to approve and she did put SAT on the referral. Per Sherly she will update me if there is any changes and I will follow up in the after noon. Informed SS Estrella Addendum: 02/08/19 at 1136 by DANE HERNANDEZ SS Per Sherly from [employer] it has been faxed to Medical. She stated Medical takes up to 14 days to approved and she put the referral as SAT.
--- NOTE | 2019-02-08 11:46 | NUR ---
Kirill Haile certified orthotic fitter, has placed patient in cam boot at this time.
[2019-02-08 12:00] VITALS: BP 105/52
[2019-02-08 17:00] VITALS: BP 115/65
--- NOTE | 2019-02-08 18:47 | NUR ---
Patient refusing meds Patient has refused colace and lactulose today. Patient states he, "has no problem pooping." Educated patient but patient continues to refuse.
--- NOTE | 2019-02-08 19:15 | NUR ---
Opening Shift Note Received report from kenney Porter RN. Assumed care of patient, awake and alert. No S/S of distress/SOB or pain. Instructed on POC and to call for assist PRN, will continue to monitor for changes Q1hr and PRN.
--- NOTE | 2019-02-08 19:30 | NUR ---
Closing Shift Note Patient resting in bed. Patient shows no signs or symptoms of distress. Report given. Will endorse care to the shift manager RN.
[2019-02-08] MEDS: ATORVASTATIN 20 MG TAB PO SCH (21:41)
[2019-02-08 21:45] VITALS: BP 115/60
[2019-02-09] MEDS: MORPHINE SULF INJ 2 MG/ML SYRINGE 1ML IV PRN ×3 (00:08→08:39)
[2019-02-09] MEDS: LACTULOSE 20Gm/30ML SOLN PO SCH ×3 (00:08→12:16)
[2019-02-09 05:00] VITALS: BP 102/51
[2019-02-09] MEDS: ACCU-CHEK COMFORT CURVE STRIP VI SCH ×2 (06:37→11:30)
[2019-02-09] MEDS: InsuLIN REG 1unit/0.01ml Soln (100units/ml) SC SCH ×2 (06:37→11:30)
--- NOTE | 2019-02-09 07:20 | NUR ---
OPENING SHIFT NOTE ASSUMED CARE OF PATIENT FROM FILM PROJECTOR OPERATOR RN MIGNON. PATIENT IS AWAKE AND ALERT X4. PATIENT HAS NO S/S OF DISTRESS/SOB OR PAIN. INSTRUCTED PATIENT ON POC, PATIENT VERBALIZED UNDERSTANDING. BED IS IN LOWEST POSITION WITH SIDE RAILS RAISED X2, BED WHEELS LOCKED, CALL LIGHT AND BED SIDE COMMODE ARE WITHIN REACH. WILL CONTINUE TO MONITOR.
[2019-02-09 07:32] VITALS: BP 113/61
[2019-02-09 08:00] VITALS: BP 117/66
[2019-02-09] MEDS: Glucerna Carbsteady SHAKE Vanilla 8oz PO SCH ×2 (08:00→12:08)
[2019-02-09] MEDS: NutriHep RTU 240 mL Unflavored PO SCH (08:00)
[2019-02-09] MEDS: VANCOMYCIN 1,500 MG in D5W 5% 250 ML IV SCH (09:00)
[2019-02-09] MEDS: DOCUSATE SOD 100 MG CAP PO SCH (10:00)
[2019-02-09] MEDS: ASPirin-EC 81 mg tab PO SCH (10:00)
[2019-02-09] MEDS: FUROSEMIDE 40 MG TAB PO SCH (10:25)
[2019-02-09] MEDS: METOPROLOL TARTRATE 25 MG TAB PO SCH (10:25)
[2019-02-09] MEDS: SPIRONOLACTONE 25 MG TAB PO SCH (10:25)
[2019-02-09] MEDS: FAMOTIDINE 20 MG TAB PO SCH (10:26)
[2019-02-09 12:00] VITALS: BP 113/61
--- NOTE | 2019-02-09 13:30 | NUR ---
RAMILA SUMO WRESTLER AT BEDSIDE UPDATED SUMO WRESTLER ON PATIENT'S STATUS INCLUDING LABS. PER SUMO WRESTLER PATIENT CAN BE DISCHARGED
[2019-02-09 13:54] VITALS: BP 113/61
[2019-02-09] MEDS ORDERED: VANCOMYCIN 1,250 MG in D5W 5% 250 ML IV SCH (21:00)
== END 2019-02-09 15:15 | disposition home or self-care (01) | DRG 280 ==
LOC: EDBD 04:51 → ER 04:55 → TELE 04:56 → TELE-CENTR 16:21
PROVIDERS: ADMIT Nurse Practitioner Acute Care; ATTEND Internal Medicine Pulmonary Disease
PROC: 0W9G3ZX Drainage of Peritoneal Cavity, Percutaneous Approach, Diagnostic (ICD-10-PCS; principal; 2019-01-31)
DX: K70.31 Alcoholic cirrhosis of liver with ascites (principal); E43 Unspecified severe protein-calorie malnutrition; D61.818 Other pancytopenia; E11.22 Type 2 diabetes mellitus with diabetic chronic kidney disease; E11.610 Type 2 diabetes mellitus with diabetic neuropathic arthropathy; K72.90 Hepatic failure, unspecified without coma; M86.8X7 Other osteomyelitis, ankle and foot; K76.6 Portal hypertension; E11.65 Type 2 diabetes mellitus with hyperglycemia; I25.119 Atherosclerotic heart disease of native coronary artery with unspecified angina pectoris; D63.8 Anemia in other chronic diseases classified elsewhere; J44.9 Chronic obstructive pulmonary disease, unspecified; E66.9 Obesity, unspecified; K40.20 Bilateral inguinal hernia, without obstruction or gangrene, not specified as recurrent; R59.0 Localized enlarged lymph nodes; B19.20 Unspecified viral hepatitis C without hepatic coma; I85.00 Esophageal varices without bleeding; E11.69 Type 2 diabetes mellitus with other specified complication; F17.210 Nicotine dependence, cigarettes, uncomplicated; K21.9 Gastro-esophageal reflux disease without esophagitis; B95.62 Methicillin resistant Staphylococcus aureus infection as the cause of diseases classified elsewhere; I12.9 Hypertensive chronic kidney disease with stage 1 through stage 4 chronic kidney disease, or unspecified chronic kidney disease; F19.90 Other psychoactive substance use, unspecified, uncomplicated; N18.9 Chronic kidney disease, unspecified; Z79.4 Long term (current) use of insulin; Z79.84 Long term (current) use of oral hypoglycemic drugs; Z79.899 Other long term (current) drug therapy; Z83.3 Family history of diabetes mellitus; Z91.19 Patient's noncompliance with other medical treatment and regimen; Z68.41 Body mass index [BMI] 40.0-44.9, adult; R07.89 Other chest pain
CPT/HCPCS: 10022; 36415; 49083; 71046; 71275; 74176; 76705; 76942; 78315; 80048; 80053; 80202; 80307; 81001; 82140; 82962; 83036; 83690; 83735; 83880; 84484; 85007; 85025; 85027; 85379; 85610; 85730; 86141; 86704; 86706; 86708; 86803; 87081; 87340; 93005; 93306; 93970; 96361; 96365; 96375; G0378; J1815; J2250; J2405; J7060; P9047

== ENCOUNTER 2019-02-11 00:45 | Emergency (ER) | payer MEDICAID ==
[~2019-02-11] VITALS: Ht 172.7 cm; Wt 124.7 kg
[~2019-02-11 00:45] MED LIST changes: +HYDR-4833 PO
[2019-02-11 01:30] LABS: Basophils # (auto) 0 uL; Basophils % (auto) 1.1 % (0.0-2.0); Eosinophils # (auto) 0.1 uL; Hematocrit 34.3 % (41.0-53.0); Hemoglobin 11.6 g/dL (13.5-17.5); Lymphocytes # (auto) 0.6 uL; Lymphocytes % (auto) 15.9 % (10.0-50.0); Mean Corpuscular Hemoglobin 31.8 pg (28.0-32.0); Mean Corpuscular Hgb Conc. 33.7 g/dL (32.0-36.0); Mean Corpuscular Volume 94.5 fL (80.0-100.0); Monocytes # (auto) 0.5 uL; Monocytes % (auto) 13.9 % (0.0-12.0); Neutrophils # (auto) 2.4 uL; Neutrophils % (auto) 65.1 % (37.0-80.0); Nucleated Red Blood Cells % 0.3 %; Platelet Count (auto) 72 10^3/uL (140-450); Red Blood Cells 3.63 10^6/uL (4.5-5.90); Red Cell Distribution Width 17.5 % (11.8-14.3); White Blood Cell 3.7 10^3/uL (4.4-10.8)
[2019-02-11 02:07] LABS: Alanine Aminotransferase 27 U/L (16-61); Albumin 1.6 g/dL (3.4-5.0); Anion Gap 6 (5-15); Aspartate Aminotransferase 61 U/L (15-37); BUN/Creatinine Ratio 13.8; Blood Urea Nitrogen 11 mg/dL (7-18); Calcium 7.4 mg/dL (8.5-10.1); Carbon Dioxide 22 mmol/L (21-32); Chloride 110 mmol/L (98-107); GFR African American 130 mL/min; GFR Non-African American 107 mL/min; Glucose 147 mg/dL (74-106); Sodium 138 mmol/L (136-145)
[2019-02-11 02:10] LABS: Alkaline Phosphatase 182 U/L (45-117); Bilirubin, Total 1.5 mg/dL (0.2-1.0); Total Protein 7.1 g/dL (6.4-8.2)
[2019-02-11] MEDS ORDERED: MORPHINE SULFATE 4 MG/ML SYR/VIAL IV ONE (03:15)
[2019-02-11] MEDS ORDERED: ONDANSETRON HCL 4 MG/2 ML VIAL IV ONE (03:15)
[2019-02-11 03:30] VITALS: BP 109/51
[2019-02-11 04:11] LABS: INR 1.26 (0.9-1.15); Partial Thromboplastin Time 32.2 sec (23.64-32.05)
== END 2019-02-11 04:11 | disposition left against medical advice (07) ==
LOC: EDBD 00:45 → EDUNIT# 00:45 → ER 00:50
DX: K70.30 Alcoholic cirrhosis of liver without ascites (principal); K72.90 Hepatic failure, unspecified without coma; R60.1 Generalized edema; I11.0 Hypertensive heart disease with heart failure; I50.9 Heart failure, unspecified; K21.9 Gastro-esophageal reflux disease without esophagitis; J45.909 Unspecified asthma, uncomplicated; F17.210 Nicotine dependence, cigarettes, uncomplicated; F12.10 Cannabis abuse, uncomplicated; Z91.19 Patient's noncompliance with other medical treatment and regimen; Z79.899 Other long term (current) drug therapy
CPT/HCPCS: 36415; 80053; 80320; 83880; 84484; 85025; 85610; 85730; 93005